=== PATIENT | female | born 1985 ===

== ENCOUNTER 2020-04-15 12:04 | Outpatient (REF) | payer OTHER, SELFPAY | END 2020-04-15 12:05 | disposition home or self-care (01) | LOC: HO.LAB 12:04 | PROVIDERS: Visit Provider Internal Medicine | DX: Z20.828 Contact with and (suspected) exposure to other viral communicable diseases (principal) | CPT/HCPCS: C9803; U0003 ==

== ENCOUNTER 2020-08-21 09:29 | Outpatient (REF) | payer OTHER, SELFPAY ==
[2020-08-21 11:25] LABS: COVID-19 Test Negative (Negative)
== END 2020-08-21 09:30 | disposition home or self-care (01) ==
LOC: HO.LAB 09:29
PROVIDERS: Visit Provider Internal Medicine
DX: Z20.822 Contact with and (suspected) exposure to COVID-19 (principal)
CPT/HCPCS: 36415; 87635; C9803

== ENCOUNTER 2020-11-14 11:19 | Emergency (ER) | payer OTHER, SELFPAY ==
[2020-11-14 11:28] VITALS: BP 122/75; PULSE 69; RESP 18; TEMP 35.7; O2SAT 100; BMI 22.3
== END 2020-11-14 12:06 | disposition left against medical advice (07) ==
PROVIDERS: Emergency Provider Emergency Medicine; PCP Nurse Practitioner Family
DX: R11.10 Vomiting, unspecified (principal)
CPT/HCPCS: 99281; 99282

== ENCOUNTER 2020-11-15 09:12 | Emergency (ER) | payer OTHER, SELFPAY ==
[2020-11-15 09:33] VITALS: BP 131/101; PULSE 92; RESP 16; TEMP 36.7; O2SAT 99; BMI 22.3
--- NOTE | 2020-11-15 10:17 | ED_ITS ---
HPI - Nausea/Vomiting/Diarrhea General Chief complaint: Nausea/Vomiting/Diarrhea Stated complaint: NAUSEA Time Seen by Provider: 11/15/20 10:05 Source: patient Mode of arrival: ambulatory Limitations: no limitations History of Present Illness HPI Narrative: 34-year-old female here with complaints of nausea and vomiting for the last few weeks. The patient tells me she is approximately 5 weeks and [facility] She denies any lower abdominal pain or cramping. She is currently a G 8 P 3 A/B 3. She tells me she is here seeking medication for nausea and wants no other treatment or intervention Associated nausea: Yes Related Data Previous Rx's Medication Instructions Recorded ondansetron 4 mg PO Q6H PRN #10 tab 11/15/20 Allergies Allergy/AdvReac Type Severity Reaction Status Date / Time No Known Allergies Allergy Verified 11/14/20 11:30 Review of Systems Review of Systems: Yes all other systems are reviewed and are negative Constitutional: Constitutional: Reports no additional constitutional complaints, Denies body ache(s), Denies chills, Denies fever(s), Denies headache(s) and Denies weakness Eyes: Eyes: Reports no additional eye complaints and Denies change in vision ENT: Reports system reviewed and no additional complaints, except as documented, Denies dizziness, Denies headache(s), Denies nasal congestion, Denies nasal discharge and Denies neck pain Cardiovascular: Cardiovascular: Reports no additional cardiovascular complaints, Denies chest pain, Denies leg edema and Denies dyspnea Respiratory: Respiratory: Reports no additional respiratory complaints, Denies cough and Denies dyspnea Gastrointestinal: Gastrointestinal: Reports no additional gastrointestinal complaints, Denies abdominal pain, Denies diarrhea, Reports nausea and Reports vomiting Genitourinary: Genitourinary: Reports no additional female genitourinary complaints, Denies abnormal vaginal bleeding and Denies urinary incontinence Musculoskeletal: Musculoskeletal: Reports no additional musculoskeletal c omplaints, Denies back pain, Denies arthralgias, Denies joint swelling, Denies neck pain, Denies numbness and Denies tingling Integumentary/Breasts: Skin/Breast: Reports system reviewed and no additional complaints, except as docu and Denies rash Neurologic: Reports system reviewed and no additional complaints, except as documented, Denies Abnormal speech present, Denies dizziness, Denies headache(s), Denies numbness, Denies tingling and Denies weakness PMFSH Past Medical History Attestation statement: The following information was validated with the patient. Source: old records reviewed and nursing notes reviewed Medical History Patient denies significant medical history Social History Social History Advance Directives: Yes Advance Directives Information Provided: No Advance Directives on File: No Physical Exam Vital Signs: Vital Signs: Last Vital Signs Temp 98.0 F 11/15/20 09:33 Pulse 92 11/15/20 09:33 Resp 16 11/15/20 09:33 BP 131/101 H 11/15/20 09:33 Pulse Ox 99 11/15/20 09:33 Body Mass Index 22.3 Const: General: cooperative, healthy appearing, comfortable and no acute distress Orientation/consciousness: patient oriented x3 Limitations: no limitations HENMT: Head: Yes normal to inspection Ears: hearing grossly normal bilaterally General nose exam: Normal external nose present Face and sinus: Yes normal facial exam Throat: Yes posterior oropharynx normal Eyes: General: appearance normal, both eyes and all related structures Neck: Neck: Yes normal visual inspection Chest: Chest palpation & inspection: normal inspection of the chest Resp: Effort & Inspection: normal respiratory effort GI: Other: Declined exam Palpation (GI): Tenderness to palpation present (GI) : Other: Declined exam Back/Spine/Pelvis: Thoracic/Lumbar Spine: thoracic and lumbar spine normal to inspection Skin: General skin exam: no rashes or lesions noted Neuro: General: patient oriented x3 and moves all extremities Cognition (Neuro): normal cognition Speech: No Abnormal speech present Gait exam (Neuro): Normal gait present Extrem: General: Yes normal to inspection Course Course Course Narrative: 34-year-old female here currently approximately 4-5 weeks with complaints of nausea and vomiting. No abdominal pain, cramping or bleeding. The patient is here seeking medication for nausea. She tells me [facility] Hemodynamically stable. Offered lab work and urine sample but patient declined. Offered exam but patient declined. Offered IV medication and IV fluids but patient declined. She was given Zofran sublingual. Tolerating PO on discharge. BP mildly elevated. Recommended re-check d/t . Patient declined. Reviewed worrisome signs and symptoms and when to return to the emergency department. Welcome to return at any time. Comfortable discharge home MDM - Nausea/Vomiting/Diarrhea Medical Records Attestation: I reviewed the patient's medical records. Lab Data Attestation: I reviewed the patient's lab results. Discharge Plan Discharge Clinical Impression: Nausea Patient Disposition: Home, Self-Care Instructions: Acute Nausea and Vomiting (ED) Additional Instructions: it was recommended that you get blood work and a urine sample checked but you declined this. Follow-up in the clinic as previously planned Prescriptions: New ondansetron 4 mg tablet,disintegrating 4 mg PO Q6H PRN (Reason: nausea and vomiting) Qty: 10 RF: 0 Referrals: Armando Almanza FNP-TYLER [Primary Care Provider] - 2 days (as needed) Interventions: ED Discharge Assessment Last Done: 11/15/20 10:28 Discharge Date/Time: 11/15/20 10:28
== END 2020-11-15 10:28 | disposition home or self-care (01) ==
PROVIDERS: Emergency Provider Emergency Medicine; PCP Nurse Practitioner Family
DX: O26.891 Other specified pregnancy related conditions, first trimester (principal); R11.0 Nausea; Z3A.01 Less than 8 weeks gestation of pregnancy
CPT/HCPCS: 99283

== ENCOUNTER 2021-09-04 22:18 | Emergency (ER) | payer OTHER, SELFPAY ==
[2021-09-04 22:32] VITALS: BP 124/85; PULSE 77; RESP 18; TEMP 36.7; O2SAT 99; BMI 24.1
--- NOTE | 2021-09-04 23:35 | ED.SKABFB ---
HPI - Skin/Abscess/Foreign Bdy General Chief complaint: Skin/Abscess/Foreign Body Stated complaint: rash on back Time Seen by Provider: 09/04/21 23:34 Source: patient Mode of arrival: ambulatory History of Present Illness HPI narrative: 35-year-old female with history of eczema presents with mild ?rash? to buttock area without associated fever, chills, nausea, vomiting, urinary symptoms or joint pain. Related Data Previous Rx's Medication Instructions Recorded cephalexin 500 mg capsule 500 mg PO Q12H 5 Days #10 cap 09/04/21 Allergies Allergy/AdvReac Type Severity Reaction Status Date / Time No Known Allergies Allergy Verified 11/14/20 11:30 Review of Systems Review of Systems: Pertinent positives and negatives as stated in HPI and 10 point review of systems is otherwise negative. [facility] Past Medical History Source: nursing notes reviewed Medical History Patient denies significant medical history Social History Social History Advance Directives: No Advance Directives Information Provided: No Physical Exam Vital Signs: Vital Signs: Last Vital Signs Temp 98.1 F 09/04/21 22:32 Pulse 77 09/04/21 22:32 Resp 18 09/04/21 22:32 BP 124/85 09/04/21 22:32 Pulse Ox 99 09/04/21 22:32 BMI result Body Mass Index 24.1 VITAL SIGNS: Reviewed. GENERAL: Well developed, well nourished, in no acute distress. HEAD: Normocephalic/atraumatic EYES: PERRLA, EOMI EARS: Ext canals without abnormality OROPHARYNX: no oral lesions noted, posterior pharynx clear LUNGS: Normal breath sounds. No adventitious sounds or accessory muscle use. SpO2<99> CARDIOVASCULAR: Regular rate and rhythm without noted murmurs ABDOMEN: Soft, non-tender, non-distended with bowel sounds. BACK: There is eczema and noted to the patient's back without skin breakdown. To the buttock area of air is scattered folliculitis likely secondary to patient's scratching of dry skin. MUSCULOSKELETAL: No tenderness, deformities, or effusions noted on gross inspection. EXTREMITIES: No cyanosis, clubbing or edema. SKIN: Inspection of the skin reveals no rashes, but there is a folliculitis/minimal to bilateral buttocks NEUROLOGIC: Alert and oriented x 4. Strength and sensation to light touch were grossly intact x 4. Course Course Course Narrative: 35-year-old female with history and clinical presentation consistent with chronic eczema without skin breakdown, counseled patient extensively on eczema care, also the ?rash? to the buttock area appear to be overlying folliculitis likely secondary from transfer of nails on scratching dry skin. Patient was provided with initial dose of cephalexin here in the emergency room and will be discharged home in stable condition with remaining course cephalexin. Discharge Plan Discharge Clinical Impression: Folliculitis, Eczema Patient Disposition: Home, Self-Care Instructions: Eczema (ED), Folliculitis (ED) Additional Instructions: 1. Please follow the recommendations for eczema care to help reduce your symptoms. 2. Please complete the entire course of antibiotics as prescribed and follow-up with your primary care provider for re-evaluation. Return to the ER for worsening symptoms. Prescriptions: New cephalexin 500 mg capsule 500 mg PO Q12H 5 Days Qty: 10 0RF
[2021-09-04] MEDS: cephALEXin 500 MG CAPSULE PO (23:56)
== END 2021-09-04 23:59 | disposition home or self-care (01) ==
PROVIDERS: Emergency Provider Student in an Organized Health Care Education/Training Program
DX: L30.9 Dermatitis, unspecified (principal); L73.9 Follicular disorder, unspecified
CPT/HCPCS: 99283

== ENCOUNTER 2022-09-08 16:25 | Emergency (ER) | payer OTHER, SELFPAY ==
[2022-09-08 17:40] VITALS: BP 138/87; PULSE 77; RESP 16; TEMP 37; O2SAT 99; BMI 22.5
--- NOTE | 2022-09-08 17:40 | ED_ITS ---
HPI - Dental/Oral General Chief complaint: Dental/Oral <MICHAEL Giron - Last Filed: 09/08/22 17:42> Stated complaint: tooth pain <MICHAEL Giron Last Filed: 09/08/22 17:42> Time Seen by Provider: 09/08/22 17:46 <MICHAEL Giron Last Filed: 09/08/22 17:42> Source: patient <MICHAEL Dobbs Last Filed: 09/08/22 18:02> Mode of arrival: ambulatory <MICHAEL Dobbs Last Filed: 09/08/22 18:02> Limitations: no limitations <MICHAEL Dobbs Last Filed: 09/08/22 18:02> History of Present Illness HPI Narrative: Patient is a 36 year old assigned female at with no reported medical history presenting to the emergency department today with left lower mouth pain. Patient states that she noticed around one of her left lower teeth got really swollen, so she swished with salt water and it burst open with blood and pus. P atient denies any dizziness, lightheadedness, abdominal pain, nausea, vomiting, fever, chills, blurry vision, double vision, loss of vision, chest pain, difficulty breathing, shortness of breath, back pain, night sweats, pain with urination, increased urinary frequency, increased urinary urgency, blood in her urine or stool, syncope or a near syncopal episode, recent trauma or falls, bowel incontinence, bladder incontinence, bowel retention, bladder retention, or any other complaints at this time. <MICHAEL Dobbs - Last Filed: 09/08/22 18:02> MD Complaint: tooth pain <MICHAEL Dobbs Last Filed: 09/08/22 18:02> Location: Tooth # (17) <MICHAEL Dobbs Last Filed: 09/08/22 18:02> Onset (ago): day(s) <MICHAEL Dobbs Last Filed: 09/08/22 18:02> Severity: mild <MICHAEL Dobbs Last Filed: 09/08/22 18:02> Severity scale (1-10): 2 <MICHAEL Dobbs Last Filed: 09/08/22 18:02> Treatment prior to arrival: none <MICHAEL Dobbs Last Filed: 09/08/22 18:02> Related Data Home medications: Previous Rx's Medication Instructions Recorded cephalexin 500 mg capsule 500 mg PO Q12H 5 days #10 caps 09/04/21 chlorhexidine gluconate 0.12 % 15 ml buccal BID #118 mL 09/08/22 mouthwash (Peridex) penicillin V potassium 500 mg 500 mg PO BID 10 days #20 tabs 09/08/22 tablet <MICHAEL Giron Last Filed: 09/08/22 17:42> Allergies/adverse reactions: Allergies Allergy/AdvReac Type Severity Reaction Status Date / Time No Known Allergies Allergy Verified 09/08/22 17:42 <MICHAEL Giron Last Filed: 09/08/22 17:42> Review of Systems Constitutional: Constitutional: Reports no additional constitutional complaints, Denies chills, Denies fever(s) and Denies night sweats <MICHAEL Dobbs Last Filed: 09/08/22 18:02> Eyes: Eyes: Reports no additional eye complaints, Denies blurry vision, Denies change in vision, Denies diplopia, Denies eye discharge, Denies loss of vision and Denies eye pain <MICHAEL Dobbs Last Filed: 09/08/22 18:02> ENT: Denies dizziness <MICHAEL Dobbs Last Filed: 09/08/22 18:02> Comments: left lower mouth pain <MICHAEL Dobbs Last Filed: 09/08/22 18:02> Cardiovascular: Cardiovascular: Reports no additional cardiovascular complaints, Denies chest pain, Denies lightheadedness, Denies Loss of Consciousness and Denies dyspnea <MICHAEL Dobbs Last Filed: 09/08/22 18:02> Respiratory: Respiratory: Reports no additional respiratory complaints and Denies dyspnea <MICHAEL Dobbs Last Filed: 09/08/22 18:02> Gastrointestinal: Gastrointestinal: Reports no additional gastrointestinal complaints, Denies abdominal pain, Denies melena, Denies hematochezia, Denies change in bowel habits and Denies change in stool character <MICHAEL Dobbs Last Filed: 09/08/22 18:02> Genitourinary: Genitourinary: Denies hematuria, Denies urinary frequency, Denies dysuria, Denies urinary incontinence, Denies urinary hesitancy and Denies urinary urgency <MICHAEL Dobbs - Last Filed: 09/08/22 18:02> Musculoskeletal: Musculoskeletal: Reports no additional musculoskeletal complaints, Denies numbness and Denies tingling <MICHAEL Dobbs - Last Filed: 09/08/22 18:02> Neurologic: Denies dizziness, Denies loss of vision, Denies numbness and Denies tingling <MICHAEL Dobbs - Last Filed: 09/08/22 18:02> Psychiatric: Psychiatric: Reports no additional psychiatric complaints <MICHAEL Dobbs - Last Filed: 09/08/22 18:02> Endocrine: Endocrine: Reports no additional endocrine complaints <MICHAEL Dobbs - Last Filed: 09/08/22 18:02> Hematologic/Lymphatic: Hematologic/Lymphatic: Reports no additional hematologic/lymphatic complaints <MICHAEL Dobbs - Last Filed: 09/08/22 18:02> Allergic/Immunologic: Allergic/Immunologic: Reports no additional allergic/immunologic complaints <MICHAEL Dobbs - Last Filed: 09/08/22 18:02> [facility] Past Medical History Attestation statement: The following information was validated with the patient. <MICHAEL Dobbs - Last Filed: 09/08/22 18:02> Source: old records reviewed and nursing notes reviewed <MICHAEL Dobbs - Last Filed: 09/08/22 18:02> Medical History: Medical History Patient denies significant medical history <MICHAEL Giron - Last Filed: 09/08/22 17:42> Physical Exam Vital Signs: Vital Signs: Last Vital Signs Temp 98.6 F 09/08/22 17:40 Pulse 77 09/08/22 17:40 Resp 16 09/08/22 17:40 BP 138/87 09/08/22 17:40 Pulse Ox 99 09/08/22 17:40 O2 Del Method Room Air 09/08/22 17:40 BMI result Body Mass Index 22.5 <MICHAEL Giron - Last Filed: 09/08/22 17:42> Vital Signs: Last Vital Signs Temp 98.6 F 09/08/22 17:40 Pulse 77 09/08/22 17:40 Resp 16 09/08/22 17:40 BP 138/87 09/08/22 17:40 Pulse Ox 99 09/08/22 17:40 O2 Del Method Room Air 09/08/22 17:40 BMI result Body Mass Index 22.5 <MICHAEL Dobbs - Last Filed: 09/08/22 18:02> Const: General: cooperative, no acute distress, alert and awake <MICHAEL Dobbs - Last Filed: 09/08/22 18:02> Nutritional Appearance: well nourished <MICHAEL Dobbs - Last Filed: 09/08/22 18:02> Orientation/consciousness: patient oriented x3 <MICHAEL Dobbs - Last Filed: 09/08/22 18:02> Limitations: no limitations <MICHAEL Dobbs - Last Filed: 09/08/22 18:02> HEENT: Head: Yes normal to inspection and Yes atraumatic <MICHAEL Dobbs - Last Filed: 09/08/22 18:02> Ears: hearing grossly normal bilaterally and external ears normal <MICHAEL Dobbs - Last Filed: 09/08/22 18:02> General nose exam: Normal external nose present, no nasal discharge noted and no epistaxis <MICHAEL Dobbs - Last Filed: 09/08/22 18:02> Face and sinus: Yes normal facial exam, No abrasion and No laceration <MICHAEL Dobbs - Last Filed: 09/08/22 18:02> Mouth: Normal oral and palatal mucosa present, no drooling and no muffled voice <MICHAEL Dobbs - Last Filed: 09/08/22 18:02> Teeth and gingiva: other (small area of erythema and swelling around tooth 17) <MICHAEL Dobbs - Last Filed: 09/08/22 18:02> Eyes: General: appearance normal, both eyes and all related structures <MICHAEL Dobbs - Last Filed: 09/08/22 18:02> Periorbital: periorbital findings normal <Earlene Avila PA - Last Filed: 09/08/22 18:02> Eyelids: Yes eyelids normal <Earlene Avila PA - Last Filed: 09/08/22 18:02> Conjunctivae: conjunctivae normal <Earlene Avila PA - Last Filed: 09/08/22 18:02> Pupils: Equal, round and reactive pupils present <Earlene Avila PA - Last Filed: 09/08/22 18:02> EOM: EOMs intact bilaterally <Earlene Avila PA - Last Filed: 09/08/22 18 :02> Neck: Neck: Yes normal visual inspection, Yes full ROM and Yes no lymphadenopathy <Earlene Avila PA - Last Filed: 09/08/22 18:02> Chest: Chest palpation & inspection: normal inspection of the chest <Earlene Avila PA - Last Filed: 09/08/22 18:02> Resp: Effort & Inspection: normal respiratory effort and able to speak in complete sentences <Earlene Douhgertycoty PA - Last Filed: 09/08/22 18:02> GI: Inspection: Yes normal to inspection <Earlene Avila PA - Last Fi led: 09/08/22 18:02> Neuro: General: patient oriented x3 and moves all extremities <Earlene Avila PA - Last Filed: 09/08/22 18:02> Cranial nerves: Yes Equal, round and reactive pupils present <Earlene Avila PA - Last Filed: 09/08/22 18:02> Cognition (Neuro): normal cognition <Earlene Doughertycoty PA - Last Filed: 09/08/22 18:02> Motor exam (neuro): 5/5 motor strength present throughout <Earlene Avila PA - Last Filed: 09/08/22 18:02> Sensory Exam: Normal double simultaneous stimulation for sensation <Earlene Doughertycoty PA - Last Filed: 09/08/22 18:02> Coordination: [id number] test normal <Earlene Avila PA - Last Filed: 09/08/22 18:02> Extrem: General: Yes normal to inspection, Yes full ROM and Yes capillary refill normal <Earlene Doughertycoty PA - Last Filed: 09/08/22 18:02> Psych: Appearance: grossly normal <MICHAEL Dobbs - Last Filed: 09/08/22 18:02> Mental Status: mental status grossly normal <MICHAEL Dobbs Last Filed: 09/08/22 18:02> Affect: normal affect <MICHAEL Dobbs Last Filed: 09/08/22 18:02> Attitude: cooperative <MICHAEL Dobbs - Last Filed: 09/08/22 18:02> Thought process: Normal thought process present <MICHAEL Dobbs Last Filed: 09/08/22 18:02> Thought content: Normal thought content present <MICHAEL Dobbs Last Filed: 09/08/22 18:02> Insight: Good insight present (Psych) <MICHAEL Dobbs - Last Filed: 09/08/22 18:02> Course Course Course Narrative: This is an RME: Additional HPI, ROS, PE not included below will be deferred to primary provider. 36-year-old female presents with left lower molar pain for the past few days worsening, reports that there was a bubble and it popped with pus and blood. Requesting antibiotics. Reports pain. No recent dental work. Patient does report associated subjective fevers and chills as well as L ear pain Plan tordol for pain <MICHAEL Giron - Last Filed: 09/08/22 17:42> Medical Decision Making Medical Decision Making MDM Narrative: Patient is a 36 year old assigned female at with no reported medical history presenting to the emergency department today with left lower mouth pain. Patient's physical exam showed mile erythema and swelling around tooth 17. I explained my physical exam findings to the patient. I answered all questions asked by the patient. I stressed the importance of the patient taking her medication as prescribed. I stressed the importance of the patient following up with her primary care provider and a dentist. I stressed the importance of the patient returning to the emergency department immediately if her symptoms were to worsen or if she were to develop any dizziness, shortness of breath, difficulty breathing, chest pain, blurry vision, loss of vision, nausea, vomiting, abdominal pain, fever, chills, back pain, or any other complaints. Patient verbalized agreement and understanding with this treatment plan and discharge. <MICHAEL Dobbs - Last Filed: 09/08/22 18:02> Differential Diagnosis Differential Diagnoses: The differential diagnosis associated with the presentation includes <MICHAEL Dobbs - Last Filed: 09/08/22 18:02> dental pain, dental abscess <MICHAEL Dobbs Last Filed: 09/08/22 18:02> Discharge Plan Discharge Clinical Impression: Dental abscess <MICHAEL Giron Last Filed: 09/08/22 17:42> Patient Disposition: Home, Self-Care <MICHAEL Giron Last Filed: 09/08/22 17:42> Instructions: Dental Abscess (ED) <MICHAEL Giron Last Filed: 09/08/22 17:42> Additional Instructions: Follow up with your primary care provider and a dentist. Return to the emergency department immediately if your symptoms worsen or if you develop any dizziness, shortness of breath, difficulty breathing, chest pain, blurry vision, loss of vision, nausea, vomiting, abdominal pain, fever, chills, back pain, or any other complaints. Call or visit any of the clinics below to establish with a dentist: [facility] [address] [place] [address], [address] [id number] [facility] [address] [place] [id number] [facility] [address] [place] [address] [place] [address] [place] [address] <MICHAEL Giron Last Filed: 09/08/22 17:42> Prescriptions: New penicillin V potassium 500 mg tablet 500 mg PO BID 10 Days Qty: 20 0RF chlorhexidine gluconate [Peridex] 0.12 % mouthwash 15 ml buccal BID Qty: 118 0RF No Action cephalexin 500 mg capsule 500 mg PO Q12H 5 Days Qty: 10 0RF <MICHAEL Giron Last Filed: 09/08/22 17:42> Referrals: [facility] [place] Family Medicine [Provider Group] (Call to establish and follow up with a primary care provider. If you already have a primary care provider, please follow up with them.) [facility] Primary Care, Chen [Provider Group] (Call to establish and follow up with a primary care provider. If you already have a primary care provider, please follow up with them.) [facility] Primary Care,Ian [Provider Group] (Call to establish and follow up with a primary care provider. If you already have a primary care provider, please follow up with them.) <MICHAEL Giron - Last Filed: 09/08/22 17:42> Stand Alone Forms: Work/School Release <MICHAEL Giron - Last Filed: 09/08/22 17:42> Print Language: Korean <MICHAEL Giron - Last Filed: 09/08/22 17:42>
== END 2022-09-08 18:26 | disposition home or self-care (01) ==
PROVIDERS: Emergency Provider Student in an Organized Health Care Education/Training Program
DX: K04.7 Periapical abscess without sinus (principal); K08.89 Other specified disorders of teeth and supporting structures
CPT/HCPCS: 99283

== ENCOUNTER 2024-04-14 20:48 | Emergency (ER) | payer MEDICAID, SELFPAY ==
[2024-04-14 20:50] VITALS: BP 140/89; PULSE 75; RESP 16; TEMP 36.3; O2SAT 100; BMI 21.5
--- NOTE | 2024-04-14 20:52 | ED_ITS ---
HPI - URI/Sore Throat General Chief Complaint: Ear Problems Stated Complaint: Ear ache/sore throat Time Seen by Provider: 04/14/24 21:35 Source: patient, RN notes reviewed and old records reviewed Mode of arrival: ambulatory Limitations: no limitations History of Present Illness ED Provider: Madonna STEPHENS Narrative: 38-year-old female presents for evaluation of ear pain and sore throat Patient reports that about a week ago she started with bilateral ear pain and sore throat. She has had fevers which have since resolved. Over last 2 days her left ear pain has gotten worse. She reports that it feels swabbed Her symptoms are worse if she leans forward. She also reports intermittent dizziness when she turns her head quickly She does have a history of vertigo Related Data Previous Rx's ?Medication ?Instructions ?Recorded cephalexin 500 mg capsule 500 mg PO Q12H 5 days #10 caps 09/04/21 chlorhexidine gluconate 0.12 % 15 ml buccal BID #118 mL 09/08/22 mouthwash (Peridex) penicillin V potassium 500 mg 500 mg PO BID 10 days #20 tabs 09/08/22 tablet amoxicillin 500 mg tablet 1,000 mg (2 x 500 mg) PO Q12H 1 04/14/24 week #28 tabs Allergies Allergy/AdvReac Type Severity Reaction Status Date / Time No Known Allergies Allergy Verified 04/14/24 20:51 Review of Systems Constitutional: Constitutional: Denies body ache(s), Denies chills and Denies fever(s) Eyes: Eyes: Denies blurry vision ENT: Denies ear discharge, Reports otalgia and Reports sore throat Cardiovascular: Cardiovascular: Denies chest pain and Denies dyspnea Respiratory: Respiratory: Denies cough and Denies dyspnea Gastrointestinal: Gastrointestinal: Denies abdominal pain, Denies nausea and Denies vomiting Musculoskeletal: Musculoskeletal: Denies back pain Psychiatric: Psychiatric: Denies anxiety PMFSH Past Medical History Medical History Patient denies significant medical history Social History Social History Advance Directives: No Advance Directives Information Provided: No Do you have a plan to hurt others: No Plan Physical Exam Vital Signs: Vital Signs: Last Vital Signs Temp 97.3 F 04/14/24 20:50 Pulse 75 04/14/24 20:50 Resp 16 04/14/24 20:50 BP 140/89 H 04/14/24 20:50 Pulse Ox 100 04/14/24 20:50 O2 Del Method Room Air 04/14/24 20:50 BMI result Body Mass Index 21.5 Const: General: healthy appearing, comfortable, no acute distress, alert and awake Nutritional Appearance: well nourished Orientation/consciousness: patient oriented x3 HEENT: Head: Yes normocephalic and Yes atraumatic Ears: right TM abnormal (Slightly erythematous and bulging, no rupture), TM normal on the left and EAC's normal Throat: Yes posterior oropharynx normal Eyes: Eyelids: Yes eyelids normal Conjunctivae: conjunctivae normal Sclerae: sclerae normal Corneas: corneas normal Pupils: Equal, round and reactive pupils present EOM: EOMs intact bilaterally Neck: Neck: Yes full ROM Resp: Effort & Inspection: normal respiratory effort, able to speak in complete sentences and not labored Skin: General skin exam: elasticity normal Neuro: General: patient oriented x3 Cranial nerves: Yes Equal, round and reactive pupils present and Yes Bilaterally intact EOM present Cognition (Neuro): normal cognition Course Course Course Narrative: This is a rapid medical exam. Defer additional HPI, ROS, PE to primary provider. 38-year-old female previously healthy here with complaints of left > right ear pain and sore throat. Patient initially had fever which is now resolved. Will obtain viral testing, strep testing. ROCKY Brunson APRN Medical Decision Making Medical Decision Making [facility] Narrative: 38-year-old female presents for evaluation of left ear pain, clinically she has otitis media, we will treat with amoxicillin. Differential Diagnosis Differential Diagnoses: The differential diagnosis associated with the presentation includes Otitis media Otitis externa Pharyngitis Mastoiditis Upper respiratory infect Lab Data [facility] Lab Attestation statement: I reviewed the patient's lab results. Negative for influenza, COVID, RSV, strep throat Labs: Lab Results 04/14/24 Range/Units 20:59 Influenza Type A (PCR) NEGATIVE (Negative) Influenza Type B (PCR) NEGATIVE (Negative) RSV RNA Qual (PCR) NEGATIVE (Negative) SARS-CoV-2 RNA (RT-PCR) NEGATIVE (Negative) S. pyogenes GrpA EVER Negative (Negative) Discharge Plan Discharge Clinical Impression: Otitis media Patient Disposition: Home, Self-Care Instructions: Ear Infection (ED) Additional Instructions: You tested negative for strep pharyngitis, COVID-19, influenza. Take amoxicillin twice daily for 7 days Ibuprofen/Tylenol for pain. You may also use a decongestant to help with your symptoms Follow-up with your primary doctor, return for new or worsening symptoms Prescriptions: New amoxicillin 500 mg tablet 1,000 mg PO Q12H 7 Days Qty: 28 0RF No Action cephalexin 500 mg capsule 500 mg PO Q12H 5 Days Qty: 10 0RF penicillin V potassium 500 mg tablet 500 mg PO BID 10 Days Qty: 20 0RF chlorhexidine gluconate [Peridex] 0.12 % mouthwash 15 ml buccal BID Qty: 118 0RF Print Language: Tuvaluan
[2024-04-14 21:13] LABS: IDNOW Serial# 08D9AD1C; Strep A Nucleic Acid Negative (Negative)
[2024-04-14 21:40] LABS: Influenza A PCR NEGATIVE (Negative); Influenza B PCR NEGATIVE (Negative); Resp Syncy Virus RNA Qual PCR NEGATIVE (Negative); SARS COV2 PCR INHOUSE NEGATIVE (Negative)
[2024-04-14 22:26] VITALS: BP 138/88; PULSE 76; RESP 19; TEMP 36.6; O2SAT 100
[2024-04-14 22:45] VITALS: BP 138/88; PULSE 76; RESP 19; TEMP 36.6; O2SAT 100
== END 2024-04-14 22:45 | disposition home or self-care (01) ==
PROVIDERS: Nurse Practitioner Family; Emergency Provider Emergency Medicine
DX: H66.93 Otitis media, unspecified, bilateral (principal); H92.03 Otalgia, bilateral; J02.9 Acute pharyngitis, unspecified; R42 Dizziness and giddiness; Z03.818 Encounter for observation for suspected exposure to other biological agents ruled out
CPT/HCPCS: 0241U; 87651; 99282

== ENCOUNTER 2025-02-09 21:34 | Emergency (ER) | payer MEDICAID, SELFPAY ==
[2025-02-09 21:39] VITALS: BP 115/66; PULSE 66; RESP 18; TEMP 36.6; O2SAT 96; BMI 22.3
--- OUTSIDE RECORDS SUMMARY | 2025-02-09 21:55 | XMS_ITS | Clinical Summary ---
Author Organization [employer] Address [address] [place] [address] Care Team Providers Care Junk Dealer Name Role Phone Unavailable Primary Care Provider Unavailabl e Allergies Active Allergy Reactions Criticality Noted Date Comments Sulfamethoxazole-Trimethoprim Rash Low 2023 Social History Tobacco Use Types Packs/Day Years Used Date Smoking Tobacco: Every Day Cigarettes Tobacco Cessation:Ready to Q uit: Not Asked; Counseling Given: Not Answered Depression Answer Date Recorded Patient Health Questionnaire-9 Score 16 11/03/2023 Patient Health Questionnaire-9 Score 16 11/03/2023 Last PHQ-9: Questionnaire Data Not on file 0 11/03/2023 Housing Stability Answer Date Recorded What is your housing situation today? I have sarai luna 11/03/[address] you li ve. Do you have problems with any of the following? None of the above 11/03/2023 Food Insecurity Answer Date Recorded Within the past 12 months, y ou worried that your food would run out before you got money to buy more: Never True 11/03/2023 Within the past 12 months,th e food you bought just didn't last and you didn't have enough money to get more: Never True Transportation Answer Date Recorded In the past 12 months, has l ack of transportation kept you from medical appts, meetings, work or from getting things needed for daily living? No 11/03/2023 Utilities Answer Date Recorded In the past 12 months, has t he electric, gas, oil or water company threatened to shut off services in your home? No 11/03/2023 Depression Answer Date Recorded Patient Health Questionnaire-2 Score 6 11/03/2023 Internet Access Answer Date Recorded Internet Access Q1 Yes 01/08/2024 Internet Access Q2 Not on file 01/08/2024 Comments Unknown Sex and Gender Information Value Date Recorded Sex Assigned at Female 11/03/2023 8:14 AM EDT Legal Sex Female 1:19 PM EST Gender Identity Female 11/03/2023 8:14 AM EDT Sexual Orientation Straight 11/03/2023 8: 14 AM EDT Plan of Treatment Health Maintenance Due Date Last Done Comments HIV Screening 1985 Disability Screening 1985 Alcohol/Substance Use Screening 1997 Family Planning (PISQ) 2000 HPV Vaccines (1 - 3-dose series) 2000 Hepatitis C Screening 12/30/2003 DTaP/Tdap/Td Vaccines (1 - Tdap) 2004 Pneumococcal Vaccine: Pediatrics (0 to 5 Years) and At-Risk Patients (6 to 49) Years (1 of 2 - PCV) 2004 Pap Smear 2006 Cervical Cancer Screening 12/30/2015 HPV/Cotest 12/30/2015 Hepatitis B Vaccines (2 of 3 - 19+ 3-dose series) 06/23/2016 05/26/2016 Depression Monitoring 05/04/2024 11/03/2023 , 11/03/2023 SDOH Screening 11/02/2024 11/03/2023 Tobacco Screening 11/02/2024 11/03/2023 COVID-19 Vaccine (3 - 2024-2 6 season) 2025 01/24/2022, 01/03/2022 Influenza Vaccine (#1) 2025 Zoster Vaccines (1 of 2) 12/30/2035 RSV Patients and Patients Aged 60 years or older (1 - 1-dose 75+ series) 2060 HIB Vaccines Aged Out No longer eligi ble based on patient's age to complete this topic Hepatitis A Vaccines Aged Out No long er eligible based on patient's age to complete this topic IPV Vaccines Aged Out No longer eligi ble based on patient's age to complete this topic Meningococcal B Vaccine Aged Out No l onger eligible based on patient's age to complete this topic Meningococcal Vaccine Aged Out No che sharon eligible based on patient's age to complete this topic RSV under 20 months Aged Out No longe r eligible based on patient's age to complete this topic Rotavirus Vaccines Aged Out No longer eligible based on patient's age to complete this topic Insurance [facility] C3
--- OUTSIDE RECORDS SUMMARY | 2025-02-09 21:55 | XMS_ITS | Clinical Summary ---
Author Organization [facility] it Address [address] [place] [address] Care Team Providers Care President Celebrity Acquistion Name Role Phone Krystle Melo MD Primary Care Provider Unakatelin ilable Family History Medical History Relation Name Comments Other: hypothyroidism Mother Relation Name Status Comments Mother Social History Tobacco Use Types Packs/Day Years Used Date Smoking Tobacco: Every Day Cigarettes Smokeless Tobacco: Never Alcohol Use Standard Drinks/Week Comments Not Asked 0 (1 standard drink = 0.6 oz pur e alcohol) Comments Unknown Sex and Gender Information Value Date Recorded Sex Assigned at Not on file Legal Sex Female 11:13 PM EST Gender Identity Not on file Sexual Orientation Not on file Obstetrics History Plan of Treatment Health Maintenance Due Date Last Done Comments DTaP,Tdap,and Td Vaccines (1 - Tdap) 2004 Hepatitis B Vaccines (1 of 3 - 19+ 3-dose series) 2004 Pneumococcal Vaccine: Pediat rics (0 to 5 Years) and At-Risk Patients (6 to 49 Years) (1 of 2 - PCV) 2004 Cervical Cancer Screening: P ap Smear 2006 HPV Vaccines (1 - 3-dose SCD M series) 2012 HIV Screening 11/28/2023 Hepatitis C Screening 11/28/2023 Social Influencers of Health Screening 11/28/2023 Depression Screening 05/08/2024 COVID-19 Vaccine ( - 2023-2 5 season) 2025 Influenza Vaccine (#1) 2025 RSV Immunization Adult Patie nts (1 - 1-dose 75+ series) 2060 HIB Vaccines Aged Out No longer eligi ble based on patient's age to complete this topic Hepatitis A Vaccines Aged Out No long er eligible based on patient's age to complete this topic IPV Vaccines Aged Out No longer eligi ble based on patient's age to complete this topic MMR Vaccines Aged Out No longer eligi ble based on patient's age to complete this topic Meningococcal ACWY Vaccine Aged Out N o longer eligible based on patient's age to complete this topic Meningococcal B Vaccine Aged Out No l onger eligible based on patient's age to complete this topic RSV Immunization Patients Un bharti 20 months Aged Out No longer eligible b ased on patient's age to complete this topic Varicella Vaccines Aged Out No longer eligible based on patient's age to complete this topic Care Teams President Celebrity Acquistion Relationship Specialty Start Date End Date Krystle Melo MD PCP - General Internal Medicine 12/02/11
--- NOTE | 2025-02-09 22:21 | ED_ITS ---
HPI - Dental/Oral General Chief complaint: Dental/Oral Stated complaint: toothache Time Seen by Provider: 02/09/25 22:08 Source: patient Mode of arrival: ambulatory Limitations: no limitations History of Present Illness ED Provider: EZIO MONDRAGON PA-C HPI Narrative: 39-year-old female presents to the ED today for evaluation of dental pain x3 days. Patient was evaluated by her dentist 2 days ago and was started on Augmentin for a dental infection. They have plans for tooth extraction upon completion of antibiotic course. She reports continued discomfort, temporarily relieved with Motrin 800 mg. Reports increased swelling to her left jaw. Denies fever, chills, difficulty swallowing, ear pain. Related Data Previous Rx's ?Medication ?Instructions ?Recorded cephalexin 500 mg capsule 500 mg PO Q12H 5 days #10 ca ps 09/04/21 chlorhexidine gluconate 0.12 % 15 ml buccal BID #118 m L 09/08/22 mouthwash (Peridex) penicillin V potassium 500 mg 500 mg PO BID 10 days #2 0 tabs 09/08/22 tablet amoxicillin 500 mg tablet 1,000 mg (2 x 500 mg) PO Q12 H 1 04/14/24 week #28 tabs clindamycin HCl 300 mg capsule 300 mg PO TID 7 days #2 1 caps 02/09/25 (Cleocin HCl) Allergies Allergy/AdvReac Type Severity Reaction Status Date / Time No Known Allergies Allergy Verified 02/09/25 21:41 Review of Systems Review of Systems: Constitutional: No fever, chills, fatigue, night sweats, weight changes ENT/Mouth: No ear pain, hearing loss, nasal congestion, sinus pain, rhinorrhea, sore throat, +dental pain Eyes: No eye pain, swelling, redness, vision changes, discharge Cardio: No chest pain, palpitations, DIAZ, orthopnea, peripheral edema Pulm: No SOB, cough, sputum, wheezing, dyspnea, hemoptysis GI: No nausea, vomiting, hematemesis, abdominal pain, diarrhea, constipation, hematochezia, melena : No irregular bleeding, dysuria, frequency, urgency, hesitancy, hematuria, flank pain, urinary flow changes, urinary incontinence or retention MSK: No back pain, neck pain, joint pain, myalgias Skin: No lesions, rashes Neuro: No weakness, numbness, paresthesias, LOC, dizziness, headache Psych: No anxiety/panic, depression, SI/HI, AH/VH All other systems reviewed and are negative. [facility] Past Medical History Attestation statement: The following information was validated with the patient. Source: old records reviewed and nursing notes reviewed Medical History Patient denies significant medical history Social History Social History Advance Directives: No Advance Directives Information Provided: No Physical Exam Vital Signs: Vital Signs: Last Vital Signs Temp 97.9 F 02/09/25 23:08 Pulse 66 02/09/25 23:08 Resp 18 02/09/25 23:08 BP 115/66 02/09/25 23:08 Pulse Ox 96 02/09/25 23:08 O2 Del Method Room Air 02/09/25 23:08 BMI result Body Mass Index 22.3 Vital signs stable, afebrile. Const: General: cooperative, comfortable and no acute distress Orientation/consciousness: patient oriented x3 Limitations: no limitations HEENT: Other: + mild left sided facial swelling. Tongu e and lips wnl + multiple dental caries and poor dentit ion. left lower molar with localized periapical swelling to the buccal ginginva. No pointing. No active bleeding/ discharge. TTP. No palpable fluctuance. + No edema to buccal mucosa + Posterior oropharynx without erythema/ edema. Uvula midline. Controlling secretions and speaking in complete sentences + No submandublar or submental LAD + No cervical LAD + no anterior neck swe lling Head: Yes normal to inspection, Yes No palpable skull fracture present, Yes normocephalic and Yes atraumatic Ears: hearing grossly normal bilaterally, external ears normal, TM's normal bilaterally, EAC's normal, mastoids normal and no periauricular adenopathy Eyes: General: appearance normal, both eyes and all related structures Conjunctivae: conjunctivae normal Sclerae: sclerae normal Pupils: Equal, round and reactive pupils present Neck: Neck: Yes normal visual inspection and Yes no lymphadenopathy Resp: Effort & Inspection: normal respiratory effort and no stridor Auscultation: clear to auscultation bilaterally Cardio: Rate: regular rate Rhythm: regular rhythm Skin: General skin exam: no rashes or lesions noted Neuro: General: patient oriented x3 and gait normal Cranial nerves: Yes Equal, round and reactive pupils present Course Course Course Narrative: Patient noted to have dental infection. She has been on a lower dose of Augmentin without much improvement. Will switch her over to clindamycin. Dose given in the ED today. There is no evidence of abscess that warrants drainage at this time. Patient advised to follow up with dentist this week. Patient has remained stable throughout ED visit today. I discussed worrisome signs and symptoms and when to return to the ED. All questions answered at this time. Patient is agreeable with disposition and stable for discharge. Medications Administered Discontinued Medications Generic Name Dose Route Start Last Admin Trade Name Freq PRN Reason Stop Dose Admin Clindamycin HCl 300 mg 02/09/25 22:39 02/09/25 22:50 Clindamycin Hcl 300 Mg Capsule PO 02/09/25 22:40 300 mg ONCE ONE Administration Medical Decision Making Medical Decision Making MDM Narrative: 39-year-old female presents to the ED today for evaluation of dental pain x3 days. vital signs stable, afebrile. on exam, mild left sided facial swelling. Tongue and lips wnl. multiple dental caries and poor dentition. left lower molar with localized periapical swelling to the buccal ginginva. No pointing. No active bleeding/ discharge. TTP. No palpable fluctuance. No edema to buccal mucosa. Posterior oropharynx without erythema/edema. Uvula midline. Controlling secretions and speaking in complete sentences. No submandublar or submental LAD. No cervical LAD, no anterior neck swelling Differential includes dental/ periapical abscess/infection. Unlikely mono, herpes, sialadenitis, sialolithiasis, COVER CREASER, retropharyngeal abscess, deep neck infection, osteomyelitis, facial cellulitis/ abscess, lymphoma. Differential Diagnosis Differential Diagnoses: The differential diagnosis associated with the presentation includes as above. Admission/Observation Not indicated. Tests considered The following testing was considered but not selected: I considered obtaining a CT of the soft tissues neck however these is no evidence of ludwigs angina or concern for deep tissue infection. Not warranted at this time. Prescription Management I considered prescription management with: Antibiotic Social Determinants Patient?s care significantly limited by Social Determinants of Health including: Other Social Determinant of Health Critical Care Time Critical Care Time Critical Care Time: No Discharge Plan Discharge Clinical Impression: Dental infection Patient Disposition: Home, Self-Care Instructions: Dental Abscess (ED) Additional Instructions: You were evaluated in ED today for dental pain. You have a dental infection. Please stop taking Augmentin. Instead, I am prescribing you clindamycin. Take this as prescribed 3 times daily. Follow up with your dentist as scheduled for tooth extraction. Return with any new or worsening symptoms. In the case of an emergency call 911. Prescriptions: New clindamycin HCl [Cleocin HCl] 300 mg capsule 300 mg PO TID 7 Days Qty: 21 0RF No Action cephalexin 500 mg capsule 500 mg PO Q12H 5 Days Qty: 10 0RF penicillin V potassium 500 mg tablet 500 mg PO BID 10 Days Qty: 20 0RF chlorhexidine gluconate [Peridex] 0.12 % mouthwash 15 ml buccal BID Qty: 118 0RF amoxicillin 500 mg tablet 1,000 mg PO Q12H 7 Days Qty: 28 0RF Referrals: Physician,None [Primary Care Provider, Medical] Stand Alone Forms: Work/School Release Interventions: ED Discharge Assessment Last Done: 02/09/25 23:08 Discharge Date/Time: 02/09/25 23:10 Print Language: French
[2025-02-09 23:08] VITALS: BP 115/66; PULSE 66; RESP 18; TEMP 36.6; O2SAT 96
== END 2025-02-09 23:10 | disposition home or self-care (01) ==
PROVIDERS: Emergency Provider Emergency Medicine
DX: K04.7 Periapical abscess without sinus (principal)
CPT/HCPCS: 99282; 99283

== ENCOUNTER 2025-02-19 07:41 | Emergency (ER) | payer MEDICAID, SELFPAY ==
[2025-02-19 07:56] VITALS: BP 134/69; PULSE 84; RESP 18; TEMP 36.6; O2SAT 99; BMI 22.3
[2025-02-19 08:19] LABS: MANUAL DIFF FLAG NO
[2025-02-19 08:20] LABS: Hematocrit 44.3 % (37.0-47.0); Hemoglobin 15.1 g/dl (12.0-16.0); Imm Gran Abs Auto 0.03 X10*3/uL (0.00-0.03); Imm Gran Pct Auto 0.3 % (0.0-0.4); Lymphocytes Absolute Auto 1.9 X10*3/uL (1.2-4.9); Mean Corpuscular HGB Conc 34.1 g/dl (31.0-35.0); Mean Corpuscular Hemoglobin 30.4 pg (27.0-33.0); Mean Corpuscular Volume 89.3 fL (80.0-98.0); NRBC Abs Auto 0.000 X10*3/uL (0.0-0.012); NRBC Pct Auto 0.0 /100WBC (0.0-0.2); Platelet Count 290 X10*3/uL (160-400); Red Blood Count 4.96 X10*6/uL (4.20-5.50); White Blood Count 10.4 X10*3/uL (4.8-10.8)
[2025-02-19 08:21] LABS: Appearance Urine Cloudy; Glucose Urine UA Negative (Negative); PH 7.5 (5.0-9.0); Specific Gravity - Urine 1.015 (1.005-1.025); UMIC TRIGGER UACC YES
[2025-02-19 08:38] LABS: Anion Gap 12 (12-20); Blood Urea Nitrogen 8 mg/dL (9-16); Calcium 9.3 mg/dL (8.4-10.2); Carbon Dioxide 24 mmol/L (22-29); Chloride 108 mmol/L (96-108); Creatinine Clr Calc Pharmacy 120.7; Estimated Glomerular Filt Rate > 60; Potassium 3.5 mmol/L (3.3-5.1); Sodium 140 mmol/L (135-145)
--- NOTE | 2025-02-19 09:21 | ED.NAVMDI ---
HPI - Nausea/Vomiting/Diarrhea General Chief complaint: Nausea/Vomiting/Diarrhea Stated complaint: 1.5 month preg, not throwing up Time Seen by Provider: 02/19/25 09:23 Source: patient and old records reviewed Mode of arrival: ambulatory Limitations: no limitations History of Present Illness ED Provider: SIMI STEPHENS Narrative: 39 yo female with PMH of and LMP 9/5 has been vomiting since yesterday. No pain no diarrhea no bleeding. Smells at work are bothering here and she cannot go to work due to n/v. She has no pain, no vag bleeding. She is going to [facility] Monday to terminate. She has no other complaints. She has no nausea meds at home MD elicited complaint: nausea and vomiting Onset (ago): day(s) (1) Description of vomiting: watery Associated nausea: Yes Associated abdominal pain: No Severity: moderate Exacerbating factors: eating and other (smells) Relieving factors: none Context: other Associated symptoms: denies other symptoms Related Data Previous Rx's ?Medication ?Instructions ?Recorded cephalexin 500 mg capsule 500 mg PO Q12H 5 days #10 caps 09/04/21 chlorhexidine gluconate 0.12 % 15 ml buccal BID #118 mL 09/08/22 mouthwash (Peridex) penicillin V potassium 500 mg 500 mg PO BID 10 days #20 tabs 09/08/22 tablet amoxicillin 500 mg tablet 1,000 mg (2 x 500 mg) PO Q12H 1 04/14/24 week #28 tabs clindamycin HCl 300 mg capsule 300 mg PO TID 7 days #21 caps 02/09/25 (Cleocin HCl) ondansetron 4 mg disintegrating 4 mg PO Q8H PRN nausea and 02/19/25 tablet vomiting #20 tabs promethazine 25 mg rectal 25 mg MI Q6H PRN nausea and 02/19/25 suppository vomiting #12 ea Allergies Allergy/AdvReac Type Severity Reaction Status Date / Time No Known Allergies Allergy Verified 02/19/25 07:58 Review of Systems Review of Systems: Constitutional : No Weight loss, No Fever, No Chills ENT/Mouth : No sore throat, No Rhinorrhea Eyes: No Swelling, No Redness Cardiovascular : No Chest Pain, No SOB, NoEdema Respiratory : No Cough, No Sputum, No Wheezing Gastrointestinal : Positive Nausea, Positive Vomiting, no Diarrhea, no abdominal Pain, No Hematochezia, No Melena Genitourinary : No Dysuria, No Urinary Frequency, No Hematuria, No Urgency Musculoskeletal : No joint pain, No Myalgias, No Joint Swelling All other systems reviewed and are negative. Gastrointestinal: Gastrointestinal: Reports nausea PMFSH Past Medical History Attestation statement: The following information was validated with the patient. Source: old records reviewed Medical History Patient denies significant medical history Social History Social History (Updated 02/19/25 @ 09:41 by Ruthann Goodson DO) Patient Tobacco Use Status: Never used Tobacco Physical Exam Vital Signs: Vital Signs: Last Vital Signs Temp 97.9 F 02/19/25 07:56 Pulse 84 02/19/25 07:56 Resp 18 02/19/25 07:56 BP 134/69 02/19/25 07:56 Pulse Ox 99 02/19/25 07:56 O2 Del Method Room Air 02/19/25 07:56 BMI result Body Mass Index 22.3 Appearance: Alert. Oriented X3. No acute distress. Eyes: Pupils equal, round and reactive to light. ENT: Pharynx normal. Neck: Normal inspection. Neck supple. CVS: Normal heart rate and rhythm. Pulses normal. Respiratory: No respiratory distress. Breath sounds normal. Abdomen: Soft and nontender. Skin: Skin warm and dry. Normal skin color. Normal skin turgor. Extremities: No lower extremity edema. No calf ttp Neuro: Oriented X 3. No motor deficit. No sensory deficit. Course Course Course Narrative: Medications Administered Discontinued Medications Generic Name Dose Route Start Last Admin Trade Name Freq PRN Reason Stop Dose Admin Ondansetron HCl 4 mg 02/19/25 09:22 02/19/25 09:25 Ondansetron Odt 4 Mg Tab.Rapdis TRANSLINGU 02/19/25 09:23 4 mg ONCE ONE Administration Medical Decision Making Medical Decision Making [facility] Narrative: 39 yo female with PMH of and LMP 9/5 has been vomiting since yesterday. She is hydrated on exam. She has no pain or bleeding reported. Her abd exam is benign - doubt ectopic olman need labs and ODT medications. Will start on zofran and phenergan suppository Differential Diagnosis Differential Diagnoses: The differential diagnosis associated with the presentation includes dehydration, hyperemesis Admission/Observation Consideration of admission/observation: Escalation of care including admission/observation considered feels better, tolerating PO Lab Data MDM Lab Attestation statement: I reviewed the patient's lab results. 02/19/25 08:11 02/19/25 08:11 Labs: Lab Results 02/19/25 Range/Units 08:11 WBC 10.4 (4.8-10.8) X10*3/uL RBC 4.96 (4.20-5.50) X10*6/uL Hgb 15.1 (12.0-16.0) g/dl Hct 44.3 (37.0-47.0) % MCV 89.3 (80.0-98.0) fL MCH 30.4 (27.0-33.0) pg MCHC 34.1 (31.0-35.0) g/dl RDW 13.1 (11.0-16.0) % Plt Count 290 (160-400) X10*3/uL MPV 10.3 (9.4-12.3) fL Immature Gran % (Auto) 0.3 (0.0-0.4) % Neut % (Auto) 73.3 H (45-73) % Lymph % (Auto) 18.0 L (20-40) % [place] % (Auto) 7.9 (2-11) % Eos % (Auto) 0.3 (0-4) % Baso % (Auto) 0.2 (0-2) % Lymph # (Auto) 1.9 (1.2-4.9) X10*3/uL [place] # (Auto) 0.8 (0.1-1.2) X10*3/uL Eos # (Auto) 0.0 (0.0-0.4) X10*3/uL Baso # (Auto) 0.0 (0.0-0.2) X10*3/uL Abs Immat Gran (auto) 0.03 (0.00-0.03) X10*3/uL Absolute Neuts (auto) 7.6 (2.0-8.3) x10*3/uL Absolute Nucleated RBC 0.000 (0.0-0.012) X10*3/uL Nucleated RBC % (auto) 0.0 (0.0-0.2) /100WBC Sodium 140 (135-145) mmol/L Potassium 3.5 (3.3-5.1) mmol/L Chloride 108 (96-108) mmol/L Carbon Dioxide 24 (22-29) mmol/L Anion Gap 12 (12-20) BUN 8 L (9-16) mg/dL Creatinine 0.54 (0.5-1.4) mg/dL Estim Creat Clear Calc 120.7 Estimated GFR > 60 Random Glucose 94 (60-115) mg/dL Calcium 9.3 (8.4-10.2) mg/dL Beta HCG, Quant 04643 mIU/mL Urine Color Yellow Urine Appearance Cloudy Urine pH 7.5 (5.0-9.0) Ur Specific [place] 1.015 (1.005-1.025) Urine Protein Negative (Neg-Trace) mg/dL Urine Glucose (UA) Negative (Negative) mg/dL Urine Ketones Trace (Negative) mg/dL Urine Blood Negative (Negative) Urine Nitrite Negative (Negative) Ur Leukocyte Esterase Trace H (Negative) Urine RBC 0-2 (0-2) /HPF Urine WBC 0-5 (0-5) /HPF Ur Squamous Epith Cells >20 (0-2) /HPF Urine Bacteria Trace (None Seen) Hyaline Casts 0-2 (0-2) /LPF External Record Review External record reviewed: Outpatient record Prescription Management I considered prescription management with: Other Discharge Plan Discharge Clinical Impression: Nausea & vomiting Qualifiers: Vomiting type: unspecified Qualified Code(s): R11.2 - Nausea with vomiting, unspecified Patient Disposition: Home, Self-Care Instructions: Acute Nausea and Vomiting (ED) Additional Instructions: labs reassuring stay hydrated mix gatorade and water or drink pedialyte. return for worsening pain, fevers, unable to eat or drink or any other concerns if the tab does not work you can use the suppository for vomiting Prescriptions: New promethazine 25 mg suppository 25 mg MI Q6H PRN (Reason: nausea and vomiting) Qty: 12 0RF ondansetron 4 mg tablet,disintegrating 4 mg PO Q8H PRN (Reason: nausea and vomiting) Qty: 20 0RF No Action cephalexin 500 mg capsule 500 mg PO Q12H 5 Days Qty: 10 0RF penicillin V potassium 500 mg tablet 500 mg PO BID 10 Days Qty: 20 0RF chlorhexidine gluconate [Peridex] 0.12 % mouthwash 15 ml buccal BID Qty: 118 0RF amoxicillin 500 mg tablet 1,000 mg PO Q12H 7 Days Qty: 28 0RF clindamycin HCl [Cleocin HCl] 300 mg capsule 300 mg PO TID 7 Days Qty: 21 0RF Stand Alone Forms: Work/School Release Print Language: Togolese
[2025-02-19 09:48] LABS: Alanine Aminotransferase 16 U/L (0-31); Albumin Level 4.2 g/dL (3.5-5.0); Alkaline Phosphatase 75 U/L (39-117); Aspartate Amino Transferase 15 U/L (5-31); Total Protein 6.9 g/dL (6.5-8.0)
--- NOTE | 2025-02-19 09:50 | PC.NURSE ---
Patient states she feels much better in waiting room after meds, given crackers and gingerale
[2025-02-19 09:54] VITALS: BP 134/69; PULSE 84; RESP 18; TEMP 36.6; O2SAT 99
--- OUTSIDE RECORDS SUMMARY | 2025-02-19 10:49 | XMS_ITS | Clinical Summary ---
Author Organization [employer] Address [address] [place] [address] Care Team Providers Care Audio Visual Arts Director Name Role Phone Unavailable Primary Care Provider [...] patient's age to complete this topic Insurance [facility] [id number]
--- OUTSIDE RECORDS SUMMARY | 2025-02-19 10:49 | XMS_ITS | Clinical Summary ---
Author Organization [facility] it Address [address] [place] [address] Care Team Providers Care Tester Armature Or Fields Name Role Phone Krystle Melo MD Primary [...] age to complete this topic Care Teams Tester Armature Or Fields Relationship Specialty Start Date End Date Krystle Melo MD PCP - General Internal Medicine 12/02/11
== END 2025-02-19 09:55 | disposition home or self-care (01) ==
PROVIDERS: Emergency Provider Emergency Medicine
DX: R11.2 Nausea with vomiting, unspecified (principal); R19.7 Diarrhea, unspecified; Z79.899 Other long term (current) drug therapy
CPT/HCPCS: 36415; 80048; 80076; 81001; 84702; 85025; 99282; 99283